=== PATIENT | female | born 1975 | race Caucasian/White ===

== ENCOUNTER 2017-11-24 12:36 | Outpatient (CLI) | payer OTHER | END 2017-11-24 12:38 | disposition home or self-care (01) | LOC: RAD 12:36 | DX: M54.2 Cervicalgia (principal); M54.6 Pain in thoracic spine; M54.5 Low back pain ==

== ENCOUNTER 2023-11-23 07:40 | Outpatient (CLI) | payer OTHER | END 2023-11-23 07:53 | disposition home or self-care (01) | LOC: RAD 07:40 | PROVIDERS: ATTEND Internal Medicine Gastroenterology | DX: K30 Functional dyspepsia (principal); M99.01 Segmental and somatic dysfunction of cervical region; M99.02 Segmental and somatic dysfunction of thoracic region; M99.03 Segmental and somatic dysfunction of lumbar region; M99.04 Segmental and somatic dysfunction of sacral region; M99.05 Segmental and somatic dysfunction of pelvic region ==

== ENCOUNTER 2024-03-24 07:58 | Outpatient (CLI) | payer OTHER | END 2024-03-24 07:59 | disposition home or self-care (01) | LOC: RAD 07:58 | DX: M99.01 Segmental and somatic dysfunction of cervical region (principal); M99.02 Segmental and somatic dysfunction of thoracic region; M99.03 Segmental and somatic dysfunction of lumbar region; M99.04 Segmental and somatic dysfunction of sacral region; M99.05 Segmental and somatic dysfunction of pelvic region ==

== ENCOUNTER 2024-12-28 10:47 | Outpatient (CLI) | payer OTHER | END 2024-12-28 10:58 | disposition home or self-care (01) | LOC: MAMO-SONO 10:47 | DX: N64.4 Mastodynia (principal); Z12.39 Encounter for other screening for malignant neoplasm of breast ==

== ENCOUNTER 2025-01-18 09:54 | Outpatient (CLI) | payer OTHER | END 2025-01-18 10:05 | disposition home or self-care (01) | LOC: RAD 09:54 | DX: M75.51 Bursitis of right shoulder (principal); M75.81 Other shoulder lesions, right shoulder ==

== ENCOUNTER → 2025-03-20 | Outpatient (CLI) | payer OTHER | END | disposition home or self-care (01) | LOC: SONOGRAMA 11:35 | PROVIDERS: ATTEND Obstetrics & Gynecology | DX: N60.01 Solitary cyst of right breast (principal); D21.9 Benign neoplasm of connective and other soft tissue, unspecified ==